=== PATIENT | female | born 1970 ===

== ENCOUNTER → 2018-11-18 22:37 | Outpatient (ROUT) | payer OTHER, SELFPAY ==
[2018-11-18 23:39] LABS: Add Manual Diff / Slide Review NO; Basophils Absolute Auto 0 /uL (0-100); Basophils Percent Auto 0.5 % (0-2); Eosinophils Absolute Auto 100 /uL (0-450); Eosinophils Percent Auto 0.8 % (2-4); Hemoglobin 13.6 g/dL (12.0-16.0); Lymphocytes Absolute Auto 1600 /uL (1100-4500); Lymphocytes Percent Auto 22.7 % (25-40); Mean Corpuscular HGB Conc 33.2 % (30-36); Mean Corpuscular Hemoglobin 29.8 PG (26-34); Mean Corpuscular Volume 89.6 fL (80-100); Monocytes Absolute Auto 600 /uL (0-900); Monocytes Percent Auto 8.7 % (3-14); Neutrophils Absolute Auto 4800 /uL (1500-7000); Neutrophils Percent Auto 67.3 % (50-75); Platelet Count 398 X10^3/uL (150-400); Red Blood Cell Count 4.58 X10^6/uL (4.0-5.2); Red Cell Distribution Width 13.6 % (11.6-14.8); White Blood Cell Count 7.1 X10^3/uL (4.5-11.0)
[2018-11-19 01:07] LABS: HEMOLYSIS < 15 (0-50); Iron 125 ug/dL (37-170)
[2018-11-19 01:11] LABS: Alanine Aminotransferase 19 IU/L (9-52); Albumin 4.7 g/dL (3.5-5.0); Albumin Globulin Ratio 1.5 (1.0-2.8); Alkaline Phosphatase 59 U/L (38-126); Aspartate Aminotransferase 17 IU/L (14-36); Bilirubin Total 0.5 mg/dL (0.2-1.3); Blood Urea Nitrogen 21 mg/dL (7-17); Calcium 10.5 mg/dL (8.4-10.2); Carbon Dioxide 27 mmol/L (22-32); Chloride 105 mmol/L (98-107); Cholesterol 297 mg/dL (140-199); Estimated Glomerular Filt Rate > 60.0 mL/min (>60); Globulin 3.2 g/dL (1.7-4.1); Glucose 98 mg/dL (70-100); HDL Cholesterol 37 mg/dL (40-60); HEMOLYSIS < 15 (0-50); LDL Cholesterol Calculated 215 mg/dL (<100); Potassium 4.5 mmol/L (3.4-5.1); Sodium 141 mmol/L (137-145); Total Protein 7.9 g/dL (6.3-8.2); Triglycerides 224 mg/dL (35-150)
[2018-11-19 01:17] LABS: C-Reactive Protein Quant < 0.5 mg/dL (<1.0)
[2018-11-19 01:21] LABS: Percent Iron Saturation 36 % (15-50); Total Iron Binding Capacity 352 ug/dL (265-497); Transferrin 283 mg/dL (206-381)
[2018-11-19 01:27] LABS: Free T3, Triiodothyronine Free 3.28 pg/mL (2.77-5.27); Free T4, Direct Thyroxine 0.91 ng/dL (0.78-2.19); Triiodothryronine T3 Uptake 27.9 % (23.5-40.5)
[2018-11-19 01:33] LABS: Hemoglobin A1C% w Est Avg Glu 4.9 % (4.0-6.0)
[2018-11-19 01:39] LABS: Thyroid Stimulating Hormone 4.72 uIU/mL (0.47-4.68)
[2018-11-19 01:44] LABS: Cortisol Random 6.98 ug/dL
[2018-11-19 02:18] LABS: Folate > 20.0 ng/mL (2.76-20.0); Vitamin B12 386 pg/mL (239-931)
[2018-11-19 03:33] LABS: TSH w/ Reflex to FT4 4.72 uIU/mL (0.47-4.68)
[2018-11-21 15:02] LABS: Aldolase 3.2 U/L (< 8.2)
[2018-11-22 14:53] LABS: Anti Thyroglobulin Antibody < 1 IU/mL (< 2); Thyroid Peroxidase Antibodies 1 IU/mL (< 9)
[2018-11-22 15:43] LABS: Triiodothyronine T3 Total 97 ng/dL (76-181)
== END ==
PROVIDERS: Visit Provider Family Medicine
DX: M62.81 Muscle weakness (generalized) (principal); E03.9 Hypothyroidism, unspecified; D50.9 Iron deficiency anemia, unspecified; R00.2 Palpitations; R53.83 Other fatigue
CPT/HCPCS: 36415; 80053; 80061; 82085; 82533; 82607; 82746; 83036; 83540; 83550; 84439; 84443; 84479; 84480; 84481; 85025; 86140; 86376; 86800

== ENCOUNTER → 2018-11-26 00:15 | Outpatient (ROUT) | payer OTHER, SELFPAY ==
[2018-11-26 02:11] LABS: Calcium 10.1 mg/dL (8.4-10.2); Triglycerides 184 mg/dL (35-150)
[2018-11-29 12:06] LABS: Apolipoprotein A1 141 mg/dL (> 124); Apolipoprotein B 172 mg/dL (< 90)
[2018-11-29 15:40] LABS: Parathyroid Hormone Int 41 pg/mL (14-64)
== END ==
PROVIDERS: Visit Provider Family Medicine
DX: E83.51 Hypocalcemia (principal); E78.5 Hyperlipidemia, unspecified; R73.9 Hyperglycemia, unspecified; R53.1 Weakness; R78.89 Finding of other specified substances, not normally found in blood; E03.9 Hypothyroidism, unspecified
CPT/HCPCS: 36415; 82310; 83525; 83701; 83722; 83970; 84478